=== PATIENT | male | born 1990 | race American Indian/Alaskan Native ===

== ENCOUNTER 2018-09-21 04:24 | Inpatient (IN) | payer SELFPAY ==
--- NOTE | 2018-09-21 07:10 | Emergency Department Report ---
ED General Adult HPI - General Chief complaint: Extremity Injury, Upper Stated complaint: GENERAL PAIN, DETOX Time Seen by Provider: 09/21/18 07:06 Source: patient, EMS Mode of arrival: Ambulatory Limitations: No Limitations - History of Present Illness Initial comments: Patient is a 28-year-old male that presents emergency room with complaints of generalized body pain and body aches and chills and right arm pain secondary to a needle breaking off in his right arm. Patient states that his right arm pain is in the right antecubital region where he was injecting IV drugs. Patient states he also desires detox. Patient states the pain is out of 10. Patient states the pain is worsening. Patient states the pain is in his entire body. She is also complaining of chest pain and shortness of breath. Patient states the chest pain is a 10 out of 10. Patient states the pain is worse with exertion and movement. Patient states the shortness breath is worse with exertion and better with rest. Patient states the chest pain is better with rest. Patient states he's been recently using IV drugs again. -: Sudden Location: chest, back Severity scale (0 -10): 10 Quality: stabbing Consistency: constant Improves with: rest Worsens with: movement Associated Symptoms: denies: confusion, chest pain, cough, diaphoresis, headaches, loss of appetite, malaise, nausea/vomiting, rash, seizure, shortness of breath, syncope, weakness Treatments Prior to Arrival: none - Related Data Home Medications Medication Instructions Recorded Confirmed Last Taken No Known Home Medications [No 09/21/18 09/21/18 Unknown Reported Home Medications] Allergies Allergy/AdvReac Type Severity Reaction Status Date / Time No Known Allergies Allergy Unverified 09/21/18 07:59 ED Review of Systems ROS: Stated complaint: GENERAL PAIN, DETOX Other details as noted in HPI Constitutional: chills. denies: fever Eyes: denies: eye pain, eye discharge, vision change ENT: denies: ear pain, throat pain Respiratory: shortness of breath. denies: cough, wheezing Cardiovascular: chest pain. denies: palpitations Endocrine: no symptoms reported Gastrointestinal: denies: abdominal pain, nausea, diarrhea Genitourinary: denies: urgency, dysuria Musculoskeletal: back pain, myalgia. denies: joint swelling, arthralgia Skin: denies: rash, lesions Neurological: denies: headache, weakness, paresthesias Psychiatric: denies: anxiety, depression Hematological/Lymphatic: denies: easy bleeding, easy bruising ED Past Medical Hx - Past Medical History Previous Medical History?: Yes Additional medical history: IV drug use - Surgical History Past Surgical History?: No - Family History Family history: no significant - Social History Smoking Status: Current Every Day Smoker Substance Use Type: Alcohol, Cocaine, Heroin, Marijuana - Medications Home Medications: Home Medications Medication Instructions Recorded Confirmed Last Taken Type No Known Home Medications [No 09/21/18 09/21/18 Unknown History Reported Home Medications] ED Physical Exam - General Limitations: No Limitations General appearance: alert, in no apparent distress - Head Head exam: Present: atraumatic, normocephalic - Eye Eye exam: Present: normal appearance - ENT ENT exam: Present: mucous membranes dry - Neck Neck exam: Present: normal inspection - Respiratory Respiratory exam: Present: normal lung sounds bilaterally. Absent: respiratory distress - Cardiovascular Cardiovascular Exam: Present: regular rate, normal rhythm. Absent: systolic murmur, diastolic murmur, rubs, gallop - GI/Abdominal GI/Abdominal exam: Present: soft, normal bowel sounds - Rectal Rectal exam: Present: deferred - Extremities Exam Extremities exam: Present: normal inspection, tenderness (right antecubital region) - Back Exam Back exam: Present: normal inspection - Neurological Exam Neurological exam: Present: alert, oriented X3 - Psychiatric Psychiatric exam: Present: normal affect, normal mood - Skin Skin exam: Present: warm, dry, intact, normal color. Absent: rash ED Course Vital Signs 09/21/18 09/21/18 09/21/18 04:30 04:32 04:45 Temperature 98.3 F Pulse Rate 98 H 99 H 92 H Respiratory 19 13 Rate Blood Pressure 126/73 125/69 O2 Sat by Pulse 97 Oximetry 09/21/18 09/21/18 09/21/18 05:00 05:15 05:30 Temperature Pulse Rate 96 H 93 H 94 H Respiratory 18 27 H 25 H Rate Blood Pressure 115/63 113/54 123/55 O2 Sat by Pulse 98 97 97 Oximetry 09/21/18 09/21/18 09/21/18 05:46 06:00 06:15 Temperature Pulse Rate 97 H 93 H 86 Respiratory 13 15 25 H Rate Blood Pressure 121/75 118/70 121/63 O2 Sat by Pulse 98 95 Oximetry 09/21/18 09/21/18 09/21/18 06:30 06:45 07:00 Temperature Pulse Rate 85 81 84 Respiratory 22 26 H 25 H Rate Blood Pressure 114/58 109/64 105/63 O2 Sat by Pulse 96 95 98 Oximetry 09/21/18 09/21/18 09/21/18 07:15 07:30 07:45 Temperature Pulse Rate 83 77 80 Respiratory 19 21 14 Rate Blood Pressure 105/63 105/63 124/66 O2 Sat by Pulse Oximetry 09/21/18 09/21/18 09/21/18 08:00 08:15 08:30 Temperature Pulse Rate 77 83 81 Respiratory 17 24 27 H Rate Blood Pressure 126/72 124/69 120/61 O2 Sat by Pulse Oximetry 09/21/18 09/21/18 09/21/18 08:45 09:00 09:15 Temperature Pulse Rate 77 102 H 54 L Respiratory 22 20 19 Rate Blood Pressure 125/65 123/75 129/52 O2 Sat by Pulse Oximetry 09/21/18 09/21/18 09/21/18 09:30 09:46 10:00 Temperature Pulse Rate 67 89 74 Respiratory 19 18 21 Rate Blood Pressure 123/62 123/62 109/56 O2 Sat by Pulse Oximetry 09/21/18 09/21/18 09/21/18 10:15 10:30 10:45 Temperature Pulse Rate 69 104 H 70 Respiratory 26 H 21 25 H Rate Blood Pressure 102/53 115/61 114/60 O2 Sat by Pulse Oximetry 09/21/18 09/21/18 09/21/18 11:00 11:10 11:15 Temperature Pulse Rate 77 75 Respiratory 15 18 24 Rate Blood Pressure 118/63 116/66 O2 Sat by Pulse Oximetry 09/21/18 09/21/18 09/21/18 11:30 11:45 12:00 Temperature Pulse Rate 74 75 63 Respiratory 24 25 H 24 Rate Blood Pressure 106/57 111/62 111/55 O2 Sat by Pulse Oximetry 09/21/18 09/21/18 09/21/18 12:16 12:30 12:46 Temperature Pulse Rate 51 L 92 H 88 Respiratory 22 24 21 Rate Blood Pressure 116/48 111/65 124/59 O2 Sat by Pulse Oximetry 09/21/18 13:00 Temperature Pulse Rate 59 L Respiratory 22 Rate Blood Pressure 103/56 O2 Sat by Pulse Oximetry - Reevaluation(s) Reevaluation #1: Made at trying to retrieve right antecubital forearm body. Needle visualized on x-ray. See procedure note 09/21/18 09:56 GUSTO results and plan of care with patient. Patient agrees with plan of care and admission. Patient was admitted to the hospitalist service. 09/21/18 10:15 - Consultations Consultation #1: Discussed case with general surgery, Dr Juarez. Dr Juarez states to just leave the needle in place there is no further interventions needed. Dr Juarez states that wound care can be consulted for management. 09/21/18 10:07 Consultation #2: Hospitalist consulted for admission. Hospitalist to admit patient. Hospitalist to assume care patient. Bridge orders placed for hospitalist 09/21/18 10:14 - Procedure Description Procedures done: Right antecubital form body retrieval. Attempt made. Unable to extract metallic foreign body. A 1 cm incision made. Prior to incision site was cleaned and draped in a sterile fashion and 3 mL of lidocaine injected superficially. Sterile dressing applied. Bleeding controlled with direct pressure and dressing. ED Medical Decision Making - Lab Data Result diagrams: 09/21/18 07:56 09/21/18 07:56 - EKG Data -: EKG Interpreted by Me EKG shows normal: sinus rhythm, axis, intervals, QRS complexes, ST-T waves Rate: normal - Radiology Data Radiology results: report reviewed - Medical Decision Making Patient is a 28-year-old mellitus emergency room with multiple complaints. Patient complained of body aches, chills and chest pain shortness of breath. The patient also complained of pain in his antecubital space on his right arm. Patient states he had a needle break off into his right arm. Patient had an x- ray which showed a needle in the right antecubital space. Informed body removal procedure was attempted and was unsuccessful. Patient was admitted to the hospital service for further evaluation treatment. General surgery consulted. General surgery recommendations R patient have wound care done in the hospital and no further evaluation of the needle. Patient given a tetanus in the ER. - Differential Diagnosis cp. sob. foreign body. infection. endo. Critical Care Time: Yes Critical care attestation.: If time is entered above; I have spent that time in minutes in the direct care of this critically ill patient, excluding procedure time. Critical Care Time: 45 minutes ED Disposition Clinical Impression: Chills, Body aches, SOB (shortness of breath) Foreign body of upper arm, superficial Qualifiers: Encounter type: initial encounter Laterality: right Qualified Code(s): S40.851A - Superficial foreign body of right upper arm, initial encounter Chest pain Qualifiers: Chest pain type: unspecified Qualified Code(s): R07.9 - Chest pain, unspecified Disposition: DC-09 OP ADMIT IP TO THIS HOSP Is pt being admited?: Yes Does the pt Need Aspirin: No Condition: Critical Time of Disposition: 10:15
--- NOTE | 2018-09-21 07:57 | XRay Report ---
RIGHT ELBOW, 2 VIEWS History: Pain, possible foreign body. Findings: The bony structures and joint space are unremarkable. There is a 7 mm linear density in the anterior soft tissues on the lateral image which could represent a foreign body. This may represent a small needle or other linear metallic foreign body. Please correlate with the image and the patient. Impression: Possible soft tissue foreign body in the antecubital fossa. Please correlate with the images and the patient.
[2018-09-21 08:20] LABS: Basophils # (Auto) 0.1 K/mm3 (0.0-0.1); Basophils % (Auto) 0.8 % (0.0-1.8); Eosinophils # (Auto) 0.1 K/mm3 (0.0-0.4); Eosinophils % (Auto) 0.7 % (0.0-4.3); Hematocrit 39.9 % (35.5-45.6); Hemoglobin 13.4 gm/dl (11.8-15.2); Lymphocytes # (Auto) 2.3 K/mm3 (1.2-5.4); Lymphocytes % (Auto) 27.8 % (13.4-35.0); Mean Corpuscular HGB Conc 34 % (32-34); Mean Corpuscular Volume 86 fl (84-94); Monocytes % (Auto) 12.1 % (0.0-7.3); Platelet Count 342 K/mm3 (140-440); Red Blood Count 4.62 M/mm3 (3.65-5.03); Red Cell Distribution Width 14.9 % (13.2-15.2)
[2018-09-21 08:29] LABS: Bilirubin,Urine NEG (Negative); Blood,Urine NEG (Negative); Color,Urine Yellow (Yellow); Protein,Urine <15 mg/dL mg/dL (Negative); WBC,Urine < 1.0 /HPF (0.0-6.0)
[2018-09-21 08:32] LABS: Amphetamine Screen,Urine PRESUMPTIVE NEGATIVE; Benzodiazepines Screen,Urine PRESUMPTIVE NEGATIVE; Cocaine Screen,Urine PRESUMPTIVE NEGATIVE; Methadone Screen,Urine PRESUMPTIVE NEGATIVE; Opiate Screen,Urine PRESUMPTIVE NEGATIVE
[2018-09-21 08:43] LABS: Alanine Aminotransferase 150 units/L (7-56); Albumin 3.9 g/dL (3.9-5); BUN/Creatinine Ratio 20; Blood Urea Nitrogen 12 mg/dL (9-20); Calcium 9.2 mg/dL (8.4-10.2); Hemolysis Index 7
[2018-09-21 08:54] LABS: Cannabinoid Screen,Urine PRESUMPTIVE POSITIVE
[2018-09-21] MEDS ORDERED: XYLOCAINE 2% INFILTRATI ONE (09:33)
[2018-09-21] MEDS ORDERED: BOOSTRIX IM ONE ×2 (09:55→10:53)
[2018-09-21 10:18] LABS: Creatine Kinase MB 1.7 ng/mL (0.0-4.0)
[2018-09-21] MEDS ORDERED: DOLOPHINE PO ONE (10:43)
[2018-09-21] MEDS ORDERED: ZOFRAN IV PRN (10:47)
--- NOTE | 2018-09-21 10:47 | History and Physical Report ---
History of Present Illness Date of examination: 09/21/18 Chief complaint: Generalized body aches History of present illness: 28-year-old -[place] male with medical history significant for heroin abuse, nicotine dependence presented to the emergency department his complaints of generalized aching pain for the last 3 days. He rated the pain 9 out of 10 intensity, pronounce it in his joints and bone associated with subjective fever and chills. Patient said his needle was broken and left in his right antecubital area 3 days ago while he was using heroine. He cannot move his right elbow because of the pain due to the needle. The patient denied discharge from the site. Patient said he is withdrawing from heroin. Because of his IV drug abuse, fever and chills I want to rule out infective endocarditis. REVIEW OF SYSTEMS: GENERAL: no weight change, no fatigue HEAD: no head ache EYES: no blurry vision, no acute visual loss EARS: no hearing loss, no discharge, no earache NOSE: no stuffiness, no sneezing, no discharge MOUTH, THROAT AND NECK: no bleeding gums, no sore throat, no swollen neck CARDIAC: no palpitations, no dyspnea on exertion, no orthopnea, no PND, no edema, no chest pain RESPIRATORY: no shortness of breath, no wheeze, no cough, no sputum, no hemoptysis, no asthma GI: no decreased appetite, no nausea, no vomiting, no dysphagia, no diarrhea, no constipation, no abdominal pain URINARY: no change in frequency, no urgency, no polyuria, no hematuria, no incontinence MUSCULOSKELETAL: no muscle weakness, no joint stiffness NEUROLOGIC: no loss of sensation/numbness, no tingling, no tremors, no weakness/paralysis HEMATOLOGIC: no anemia, no easy bruising SKIN: no rashes ENDOCRINE: no heat/cold intolerance, no polyuria, no polydipsia, no thyroid problems, no diabetes PSYCHIATRIC: no anxiety, no depression, no suicidal ideations Past History Past Medical History: No medical history Past Surgical History: No surgical history Social history: smoking (smoking a lot of cigarettes, and marijuana), IV drug use (heroine). denies: alcohol abuse Family history: no significant family history Medications and Allergies Allergies Allergy/AdvReac Type Severity Reaction Status Date / Time No Known Allergies Allergy Unverified 09/21/18 07:59 Home Medications Medication Instructions Recorded Confirmed Last Taken Type No Known Home Medications [No 03/13/19 03/13/19 Unknown History Reported Home Medications] Active Meds: Active Medications Enoxaparin Sodium (Lovenox) 40 mg SUB-Q QDAY@2200 DINH Vancomycin HCl (Vancomycin/Ns 1 Gm/250 Ml) 1 gm in 250 mls @ 166.667 mls/hr IV Q12H DIN[facility]; Protocol Piperacillin Sod/Tazobactam Sod (Zosyn/Ns 4.5gm/100ml) 4.5 gm in 100 mls @ 200 mls/hr IV Q6HR DINH; Protocol Ibuprofen (Motrin) 400 mg PO TID PRN PRN Reason: Pain , Severe (7-10) Methadone HCl (Dolophine) 20 mg PO ONCE ONE Stop: 09/21/18 10:44 Exam - Physical Exam Narrative exam: Not in cardiopulmonary distress. The patient appeared well nourished and normally developed. Vital signs as documented. Head exam is unremarkable. No scleral icterus . Neck is without jugular venous distension, thyromegaly, or carotid bruits. Lungs are clear to auscultation. Cardiac exam reveals regular rate and Rhythm. Abdominal exam reveals normal bowel sounds. Extremities are nonedematous and both femoral and pedal pulses are normal. QUALITY RN: Alert and oriented 3. No focal weakness. - Constitutional Vitals: Temp Pulse Resp BP Pulse Ox 98.3 F 70 25 H 114/60 98 09/21/18 04:32 09/21/18 10:45 09/21/18 10:45 09/21/18 10:45 09/21/18 07:00 Results - Labs CBC & Chem 7: 09/21/18 07:56 09/21/18 07:56 Labs: Laboratory Last Values WBC 8.1 K/mm3 (4.5-11.0) 09/21/18 07:56 RBC 4.62 M/mm3 (3.65-5.03) 09/21/18 07:56 Hgb 13.4 gm/dl (11.8-15.2) 09/21/18 07:56 Hct 39.9 % (35.5-45.6) 09/21/18 07:56 MCV 86 fl (84-94) 09/21/18 07:56 MCH 29 pg (28-32) 09/21/18 07:56 MCHC 34 % (32-34) 09/21/18 07:56 RDW 14.9 % (13.2-15.2) 09/21/18 07:56 Plt Count 342 K/mm3 (140-440) 09/21/18 07:56 Lymph % (Auto) 27.8 % (13.4-35.0) 09/21/18 07:56 [place] % (Auto) 12.1 % (0.0-7.3) H 09/21/18 07:56 Eos % (Auto) 0.7 % (0.0-4.3) 09/21/18 07:56 Baso % (Auto) 0.8 % (0.0-1.8) 09/21/18 07:56 Lymph # 2.3 K/mm3 (1.2-5.4) 09/21/18 07:56 [place] # 1.0 K/mm3 (0.0-0.8) H 09/21/18 07:56 Eos # 0.1 K/mm3 (0.0-0.4) 09/21/18 07:56 Baso # 0.1 K/mm3 (0.0-0.1) 09/21/18 07:56 Seg Neutrophils % 58.6 % (40.0-70.0) 09/21/18 07:56 Seg Neutrophils # 4.8 K/mm3 (1.8-7.7) 09/21/18 07:56 Sodium 138 mmol/L (137-145) 09/21/18 07:56 Potassium 4.5 mmol/L (3.6-5.0) 09/21/18 07:56 Chloride 102.8 mmol/L (98-107) 09/21/18 07:56 Carbon Dioxide 25 mmol/L (22-30) 09/21/18 07:56 Anion Gap 15 mmol/L 09/21/18 07:56 BUN 12 mg/dL (9-20) 09/21/18 07:56 Creatinine 0.6 mg/dL (0.8-1.5) L 09/21/18 07:56 Estimated GFR > 60 ml/min 09/21/18 07:56 BUN/Creatinine Ratio 20 % 09/21/18 07:56 Glucose 98 mg/dL (75-100) 09/21/18 07:56 Lactic Acid 1.00 mmol/L (0.7-2.0) 09/21/18 07:56 Calcium 9.2 mg/dL (8.4-10.2) 09/21/18 07:56 Total Bilirubin 0.30 mg/dL (0.1-1.2) 09/21/18 07:56 AST 77 units/L (5-40) H 09/21/18 07:56 ALT 150 units/L (7-56) H 09/21/18 07:56 Alkaline Phosphatase 75 units/L (35-129) 09/21/18 07:56 Total Creatine Kinase 160 units/L (55-170) 09/21/18 07:56 CK-MB (CK-2) 1.7 ng/mL (0.0-4.0) 09/21/18 07:56 CK-MB (CK-2) Rel Index 1.0 (0-4) 09/21/18 07:56 Troponin T < 0.010 ng/mL (0.00-0.029) 09/21/18 07:56 Total Protein 6.7 g/dL (6.3-8.2) 09/21/18 07:56 Albumin 3.9 g/dL (3.9-5) 09/21/18 07:56 Albumin/Globulin Ratio 1.4 % 09/21/18 07:56 Urine Color Yellow (Yellow) 09/21/18 08:00 Urine Turbidity Clear (Clear) 09/21/18 08:00 Urine pH 7.0 (5.0-7.0) 09/21/18 08:00 Ur Specific [place] 1.013 (1.003-1.030) 09/21/18 08:00 Urine Protein <15 mg/dl mg/dL (Negative) 09/21/18 08:00 Urine Glucose (UA) Neg mg/dL (Negative) 09/21/18 08:00 Urine Ketones Neg mg/dL (Negative) 09/21/18 08:00 Urine Blood Neg (Negative) 09/21/18 08:00 Urine Nitrite Neg (Negative) 09/21/18 08:00 Urine Bilirubin Neg (Negative) 09/21/18 08:00 Urine Urobilinogen 4.0 mg/dL (<2.0) 09/21/18 08:00 Ur Leukocyte Esterase Neg (Negative) 09/21/18 08:00 Urine WBC (Auto) < 1.0 /HPF (0.0-6.0) 09/21/18 08:00 Urine RBC (Auto) 2.0 /HPF (0.0-6.0) 09/21/18 08:00 Urine Opiates Screen Presumptive negative 09/21/18 08:00 Urine Methadone Screen Presumptive negative 09/21/18 08:00 Ur Barbiturates Screen Presumptive negative 09/21/18 08:00 Ur Phencyclidine Scrn Presumptive negative 09/21/18 08:00 Ur Amphetamines Screen Presumptive negative 09/21/18 08:00 U Benzodiazepines Scrn Presumptive negative 09/21/18 08:00 Urine Cocaine Screen Presumptive negative 09/21/18 08:00 U Marijuana (THC) Screen Presumptive positive 09/21/18 08:00 Drugs of Abuse Note Disclamer 09/21/18 08:00 Assessment and Plan Assessment and plan: Rule out infective endocarditis - Patient is on IV vancomycin and Zosyn - Blood culture ordered - Echo, we'll monitor for fever - ID consult Broken needle in the right antecubital area - IR was consulted and will do CT and will remove the needle Heroin abuse, withdrawal - On methadone Nicotine dependence -Nicotine patch DVT prophylaxis - On Lovenox Disposition - Admit to telemetry floor Advance Directives: Yes VTE prophylaxis?: Chemical Plan of care discussed with patient/family: Yes
[2018-09-21] MEDS: ZOSYN/NS 4.5GM/100ML 4.5 GM/100 ML VIAL IV SCH ×2 (12:00→20:45)
[2018-09-21] MEDS ORDERED: VANCOMYCIN 1,500 MG in NACL 0.9% 500 ML 500 ML IV ONE (12:00)
--- NOTE | 2018-09-21 12:09 | Consultation ---
History of Present Illness - Reason for Consult Consult date: 09/21/18 foreign body in antecubital fossa - History of Present Illness Patient with a history of IV drug abuse who fractured and needle in his antecubital fossa all injecting drugs. The patient presents with fevers and chills. There is no drainage or exudates at the site of needle insertion. Attempt removed and foreign body in the emergency department were unsuccessful. Past History Past Medical History: other (IV drug abuse) Social history: no significant social history Family history: no significant family history Medications and Allergies Allergies Allergy/AdvReac Type Severity Reaction Status Date / Time No Known Allergies Allergy Unverified 09/21/18 07:59 Home Medications Medication Instructions Recorded Confirmed Last Taken Type No Known Home Medications [No 09/21/18 09/21/18 Unknown History Reported Home Medications] Active Meds: Active Medications Enoxaparin Sodium (Lovenox) 40 mg SUB-Q QDAY@2200 DIN[facility] Vancomycin HCl (Vancomycin/Ns 1 Gm/250 Ml) 1 gm in 250 mls @ 166.667 mls/hr IV Q12H [facility]IN[facility]; Protocol Piperacillin Sod/Tazobactam Sod (Zosyn/Ns 4.5gm/100ml) 4.5 gm in 100 mls @ 200 mls/hr IV Q6HR [facility]IN[facility]; Protocol Vancomycin HCl 1,500 mg/ (Sodium Chloride) 530 mls @ 333.333 mls/hr IV ONCE ONE Stop: 09/21/18 13:35 Ibuprofen (Motrin) 400 mg PO TID PRN PRN Reason: Pain , Severe (7-10) Ondansetron HCl (Zofran) 4 mg IV Q8H PRN PRN Reason: N/V unrelieved by Reglan Review of Systems All systems: negative Exam - Constitutional Vitals: Temp Pulse Resp BP Pulse Ox 98.3 F 70 18 114/60 98 09/21/18 04:32 09/21/18 10:45 09/21/18 11:10 09/21/18 10:45 09/21/18 07:00 General appearance: Present: no acute distress - EENT Eyes: Present: EOM intact ENT: hearing intact - Neck Neck: Present: supple - Extremities Extremities: no ischemia - Abdominal General gastrointestinal: Present: deferred Male genitourinary: Present: deferred - Rectal Rectal Exam: deferred - Psychiatric Psychiatric: cooperative - Neurologic Neurologic: no focal deficits Results - Labs CBC & Chem 7: 09/21/18 07:56 09/21/18 07:56 Labs: Abnormal lab results 09/21/18 09/21/18 Range/Units 07:56 07:56 [place] % (Auto) 12.1 H (0.0-7.3) % [place] # 1.0 H (0.0-0.8) K/mm3 Creatinine 0.6 L (0.8-1.5) mg/dL AST 77 H (5-40) units/L ALT 150 H (7-56) units/L - Imaging and Cardiology Chest x-ray: image reviewed (right elbow xray) Assessment and Plan We'll order a CT scan of the patient's right arm to determine the depth of the foreign body. Following that, the patient will undergo removal of foreign body under likely ultrasound guidance.
--- NOTE | 2018-09-21 13:43 | Cat Scan Report ---
CT UPPER EXTREMITY RIGHT WITH CONTRAST History: Pain, foreign body, needle in the antecubital fossa Technique: Helical CT following IV contrast. Sagittal and coronal reformatted images. Findings: Right elbow films performed the same day were reviewed. CT confirms a linear metallic foreign body measuring approximately 7 mm in the subcutaneous tissues of the right antecubital fossa. This appears to represent a needle fragment. The tip of the foreign body is located approximately 2 mm deep to the skin surface. Please correlate with the images. There is no evidence for soft tissue gas or associated abscess in the antecubital fossa. The remaining soft tissues and bony structures are unremarkable. No joint pathology is identified. IMPRESSION: Foreign body in the right antecubital fossa soft tissues as outlined above. No associated abscess.
[2018-09-21 18:31] LABS: Hepatitis C Virus Antibody Reactive (NonReactive)
[2018-09-21] MEDS: IBUPROFEN PO PRN (20:45)
[2018-09-21] MEDS: HABITROL TD SCH (20:45)
[2018-09-21] MEDS: DOLOPHINE PO SCH (22:11)
[2018-09-21] MEDS: LOVENOX SUB-Q SCH (22:11)
[2018-09-22] MEDS: ZOSYN/NS 4.5GM/100ML 4.5 GM/100 ML VIAL IV SCH ×5 (00:04→23:09)
[2018-09-22] MEDS ORDERED: VANCOMYCIN/NS 1 GM/250 ML 1 GM/250 ML BAG IV SCH (01:00)
[2018-09-22 07:00] LABS: Basophils % (Auto) 0.5 % (0.0-1.8); Eosinophils # (Auto) 0.1 K/mm3 (0.0-0.4); Eosinophils % (Auto) 1.4 % (0.0-4.3); Hematocrit 43.3 % (35.5-45.6); Hemoglobin 14.4 gm/dl (11.8-15.2); Lymphocytes # (Auto) 2.4 K/mm3 (1.2-5.4); Lymphocytes % (Auto) 30.2 % (13.4-35.0); Mean Corpuscular HGB Conc 33 % (32-34); Mean Corpuscular Volume 87 fl (84-94); Monocytes # (Auto) 0.9 K/mm3 (0.0-0.8); Monocytes % (Auto) 11.1 % (0.0-7.3); Platelet Count 364 K/mm3 (140-440); Red Blood Count 4.95 M/mm3 (3.65-5.03); Red Cell Distribution Width 15.1 % (13.2-15.2)
[2018-09-22 07:18] LABS: BUN/Creatinine Ratio 16; Blood Urea Nitrogen 11 mg/dL (9-20); Calcium 9.2 mg/dL (8.4-10.2); Hemolysis Index 15
[2018-09-22] MEDS: HABITROL TD SCH (09:22)
[2018-09-22] MEDS: DOLOPHINE PO SCH ×2 (09:22→21:13)
[2018-09-22] MEDS ORDERED: HEPARIN/NS 5000 UNIT/500ML(CATH LAB) 0 ML IR ONE (13:28)
[2018-09-22] MEDS ORDERED: NACL 0.9% 500 ML 500 ML ONE (13:28)
[2018-09-22] MEDS ORDERED: XYLOCAINE 2% INFILTRATI ONE (13:29)
[2018-09-22] MEDS ORDERED: ANCEF/STERILE WATER 2 GM/20 ML 0 GM/0 ML SYRINGE IV ONE (13:29)
[2018-09-22] MEDS ORDERED: NACL 0.9% 0 ML IR ONE (13:55)
[2018-09-22] MEDS: VERSED ONE ×2 (14:13→14:24)
[2018-09-22] MEDS: SUBLIMAZE ONE ×2 (14:13→14:24)
[2018-09-22] MEDS ORDERED: XYLOCAINE 1%/ EPI 1:100,000 INFILTRATI ONE (14:22)
--- NOTE | 2018-09-22 14:42 | Post Operative Note ---
Date of procedure: 09/22/18 Pre-op diagnosis: Foreign body in right arm Post-op diagnosis: same Procedure: 1. Ultrasound guided evaluation of the right antecubital fossa with attempt at removal 2. Fluoroscopic guided removal of the right arm antecubital fossa retained needle Anesthesia: local (w/ conscious sedation) Surgeon: FLORECITA CELAYA Estimated blood loss: minimal Condition: stable Disposition: floor
--- NOTE | 2018-09-22 14:44 | Event Note ---
Date: 09/22/18 Successful removal of the right arm foreign body. Sent for culture. Change iodoform gauze daily until healed. Wound care for further management.
--- NOTE | 2018-09-22 14:57 | Event Note ---
Date: 09/22/18 Patient off the floor. ID consulted for IVDU, concern for possible endocarditis. Chart reviewed. Patient with retained broken needle from active IVDU. Continue vancomycin. Follow up blood cultures, they are negative thus far. Full consult to follow in AM.
--- NOTE | 2018-09-22 15:25 | Progress Note ---
Assessment and Plan Assessment and plan: Rule out infective endocarditis - Patient is on IV vancomycin and Zosyn - follow blood culture - follow echo - ID consulted and recommend vancomycin until work up is finished Broken needle in the right antecubital area - IR was consulted and remove the foreign body Heroin abuse, withdrawal - On methadone Nicotine dependence -Nicotine patch DVT prophylaxis - On Lovenox Disposition - Admit to telemetry floor History Interval history: Patient was seen and evaluated this morning, patient denied chest pain, heroin withdrawal was getting better after methadone. Hospitalist Physical - Physical exam Narrative exam: Not in cardiopulmonary distress. The patient appeared well nourished and normally developed. Vital signs as documented. Head exam is unremarkable. No scleral icterus . Neck is without jugular venous distension, thyromegaly, or carotid bruits. Lungs are clear to auscultation. Cardiac exam reveals regular rate and Rhythm. Abdominal exam reveals normal bowel sounds. Extremities are nonedematous and both femoral and pedal pulses are normal. CONSUMER EDUCATION SPECIALIST: Alert and oriented 3. No focal weakness. - Constitutional Vitals: Temp Pulse Resp BP Pulse Ox 98.9 F 60 20 103/51 98 09/22/18 08:07 09/22/18 08:07 09/22/18 08:07 09/22/18 08:07 09/22/18 08:07 General appearance: Present: no acute distress Results - Labs CBC & Chem 7: 09/22/18 05:55 09/22/18 05:55 Labs: Laboratory Last Values WBC 8.0 K/mm3 (4.5-11.0) 09/22/18 05:55 RBC 4.95 M/mm3 (3.65-5.03) 09/22/18 05:55 Hgb 14.4 gm/dl (11.8-15.2) 09/22/18 05:55 Hct 43.3 % (35.5-45.6) 09/22/18 05:55 MCV 87 fl (84-94) 09/22/18 05:55 MCH 29 pg (28-32) 09/22/18 05:55 MCHC 33 % (32-34) 09/22/18 05:55 RDW 15.1 % (13.2-15.2) 09/22/18 05:55 Plt Count 364 K/mm3 (140-440) 09/22/18 05:55 Lymph % (Auto) 30.2 % (13.4-35.0) 09/22/18 05:55 [place] % (Auto) 11.1 % (0.0-7.3) H 09/22/18 05:55 Eos % (Auto) 1.4 % (0.0-4.3) 09/22/18 05:55 Baso % (Auto) 0.5 % (0.0-1.8) 09/22/18 05:55 Lymph # 2.4 K/mm3 (1.2-5.4) 09/22/18 05:55 [place] # 0.9 K/mm3 (0.0-0.8) H 09/22/18 05:55 Eos # 0.1 K/mm3 (0.0-0.4) 09/22/18 05:55 Baso # 0.0 K/mm3 (0.0-0.1) 09/22/18 05:55 Seg Neutrophils % 56.8 % (40.0-70.0) 09/22/18 05:55 Seg Neutrophils # 4.6 K/mm3 (1.8-7.7) 09/22/18 05:55 Sodium 141 mmol/L (137-145) 09/22/18 05:55 Potassium 4.3 mmol/L (3.6-5.0) 09/22/18 05:55 Chloride 103.8 mmol/L (98-107) 09/22/18 05:55 Carbon Dioxide 23 mmol/L (22-30) 09/22/18 05:55 Anion Gap 19 mmol/L 09/22/18 05:55 BUN 11 mg/dL (9-20) 09/22/18 05:55 Creatinine 0.7 mg/dL (0.8-1.5) L 09/22/18 05:55 Estimated GFR > 60 ml/min 09/22/18 05:55 BUN/Creatinine Ratio 16 % 09/22/18 05:55 Glucose 84 mg/dL (75-100) 09/22/18 05:55 Lactic Acid 1.00 mmol/L (0.7-2.0) 09/21/18 07:56 Calcium 9.2 mg/dL (8.4-10.2) 09/22/18 05:55 Total Bilirubin 0.30 mg/dL (0.1-1.2) 09/21/18 07:56 AST 77 units/L (5-40) H 09/21/18 07:56 ALT 150 units/L (7-56) H 09/21/18 07:56 Alkaline Phosphatase 75 units/L (35-129) 09/21/18 07:56 Total Creatine Kinase 160 units/L (55-170) 09/21/18 07:56 CK-MB (CK-2) 1.7 ng/mL (0.0-4.0) 09/21/18 07:56 CK-MB (CK-2) Rel Index 1.0 (0-4) 09/21/18 07:56 Troponin T < 0.010 ng/mL (0.00-0.029) 09/21/18 07:56 Total Protein 6.7 g/dL (6.3-8.2) 09/21/18 07:56 Albumin 3.9 g/dL (3.9-5) 09/21/18 07:56 Albumin/Globulin Ratio 1.4 % 09/21/18 07:56 Urine Color Yellow (Yellow) 09/21/18 08:00 Urine Turbidity Clear (Clear) 09/21/18 08:00 Urine pH 7.0 (5.0-7.0) 09/21/18 08:00 Ur Specific [place] 1.013 (1.003-1.030) 09/21/18 08:00 Urine Protein <15 mg/dl mg/dL (Negative) 09/21/18 08:00 Urine Glucose (UA) Neg mg/dL (Negative) 09/21/18 08:00 Urine Ketones Neg mg/dL (Negative) 09/21/18 08:00 Urine Blood Neg (Negative) 09/21/18 08:00 Urine Nitrite Neg (Negative) 09/21/18 08:00 Urine Bilirubin Neg (Negative) 09/21/18 08:00 Urine Urobilinogen 4.0 mg/dL (<2.0) 09/21/18 08:00 Ur Leukocyte Esterase Neg (Negative) 09/21/18 08:00 Urine WBC (Auto) < 1.0 /HPF (0.0-6.0) 09/21/18 08:00 Urine RBC (Auto) 2.0 /HPF (0.0-6.0) 09/21/18 08:00 Urine Opiates Screen Presumptive negative 09/21/18 08:00 Urine Methadone Screen Presumptive negative 09/21/18 08:00 Ur Barbiturates Screen Presumptive negative 09/21/18 08:00 Ur Phencyclidine Scrn Presumptive negative 09/21/18 08:00 Ur Amphetamines Screen Presumptive negative 09/21/18 08:00 U Benzodiazepines Scrn Presumptive negative 09/21/18 08:00 Urine Cocaine Screen Presumptive negative 09/21/18 08:00 U Marijuana (THC) Screen Presumptive positive 09/21/18 08:00 Drugs of Abuse Note Disclamer 09/21/18 08:00 Hepatitis A IgM Ab Non-reactive (NonReactive) 09/21/18 17:35 Hep B Core IgM Ab Non-reactive (NonReactive) 09/21/18 17:35 Hepatitis C Antibody Reactive (NonReactive) A 09/21/18 17:35
[2018-09-22] MEDS: IBUPROFEN PO PRN ×2 (17:18→21:14)
[2018-09-22] MEDS: VANCOMYCIN/NS 1 GM/250 ML 1 GM/250 ML BAG IV SCH ×2 (17:19→22:49)
[2018-09-22] MEDS: LOVENOX SUB-Q SCH (21:13)
[2018-09-23] MEDS: ZOSYN/NS 4.5GM/100ML 4.5 GM/100 ML VIAL IV SCH ×3 (06:15→18:01)
[2018-09-23] MEDS: VANCOMYCIN/NS 1 GM/250 ML 1 GM/250 ML BAG IV SCH ×2 (06:16→14:24)
[2018-09-23] MEDS: DOLOPHINE PO SCH (10:46)
[2018-09-23] MEDS: HABITROL TD SCH (10:47)
--- NOTE | 2018-09-23 12:57 | Consultation ---
History of Present Illness - Reason for Consult Consult date: 09/23/18 Fever, chills, concern for endocarditis Requesting physician: NICHOLAS SELLERS - History of Present Illness The patient is a 28-year-old male with active IV drug use, tobacco dependence presented to the emergency room on 09/27/2018 with complaints of a broken needle getting stuck in his right elbow. He also reportedly had been having some chills and sweats for the past week or so prior to admission. The emergency room physician tried and was unable to remove the foreign body and hence patient was admitted to the hospital. He was started empirically on IV Zosyn and vancomycin. He was seen by interventional radiology and on 09/22/2018 he underwent successful removal of the foreign body under ultrasound guidance. Infectious diseases was consulted to evaluate for possibility of endocarditis. Patient currently denies any fever. Has remained afebrile throughout hospitalization. He reports having sweats going on for the last 1-2 weeks or so. Continues to engage in active IV drug use. He otherwise denies nausea, vomiting. Denies any loose watery stools. Denies urinary burning. His hepatitis C test has resulted positive here, unaware of the diagnosis. He states he was checked for HIV about 2 months ago and was negative. He is sexually active with females, does not use condoms consistently. Review of Systems: General: no fevers or rigors. Sweats and chills + HEENT: no new visual disturbance Respiratory: No cough, sputum, hemoptysis or shortness of breath Cardiovascular: No chest pain, syncope Gastrointestinal: No nausea, vomiting or diarrhea Genitourinary: No dysuria or hematuria Musculoskeletal: No new or worsening neck pain or back pain Neurologic: No headaches, seizures Hematologic: No easy bruising or bleeding Endocrine: No heat/cold intolerance, no acute weight loss Skin: negative for rash, jaundice Psychiatric: No suicidal or homicidal ideation Past History Past Medical History: No medical history Past Surgical History: No surgical history Social history: smoking (smoking a lot of cigarettes, and marijuana), IV drug use (heroine). denies: alcohol abuse Family history: no significant family history Medications and Allergies Allergies Allergy/AdvReac Type Severity Reaction Status Date / Time No Known Allergies Allergy Unverified 09/21/18 07:59 Home Medications Medication Instructions Recorded Confirmed Last Taken Type No Known Home Medications [No 09/21/18 09/21/18 Unknown History Reported Home Medications] Active Meds: Active Medications Enoxaparin Sodium (Lovenox) 40 mg SUB-Q QDAY@2200 [facility] Last Admin: 09/22/18 21:13 Dose: 40 mg Documented by: Piperacillin Sod/Tazobactam Sod (Zosyn/Ns 4.5gm/100ml) 4.5 gm in 100 mls @ 200 mls/hr IV Q6HR [facility]; Protocol Last Admin: 09/23/18 12:36 Dose: 200 mls/hr Documented by: Vancomycin HCl (Vancomycin/Ns 1 Gm/250 Ml) 1 gm in 250 mls @ 166.667 mls/hr IV Q8HR [facility]; Protocol Last Admin: 09/23/18 06:16 Dose: 166.667 mls/hr Documented by: Ibuprofen (Motrin) 400 mg PO TID PRN PRN Reason: Pain , Severe (7-10) Last Admin: 09/22/18 21:14 Dose: 400 mg Documented by: Methadone HCl (Dolophine) 10 mg PO BID [facility] Last Admin: 09/23/18 10:46 Dose: 10 mg Documented by: Nicotine (Habitrol) 21 mg TD QDAY [facility] Last Admin: 09/23/18 10:47 Dose: 21 mg Documented by: Ondansetron HCl (Zofran) 4 mg IV Q8H PRN PRN Reason: N/V unrelieved by Reglan Physical Examination - Physical Exam Narrative exam: Physical Exam: Constitutional: Alert, cooperative. No acute distress Head, Ears, Nose: Normocephalic, atraumatic. External ears, nose normal Eyes: Conjunctivae/corneas clear. No icterus. No ptosis. Neck: Supple, no meningeal signs Oral: dentition quite poor, no thrush Cardiovascular: S1, S2 normal. Respiratory: Good air entry, clear to auscultation bilaterally GI: Soft, non-tender; bowel sounds normal. No peritoneal signs Musculoskeletal: No pedal edema, no cyanosis. Right elbow wound with packing and dressing Skin: No rash or abscess. Multiple tattoos Hem/Lymphatic: No palpable cervical or supraclavicular nodes. No lymphangitis Psych: Mood ok. Affect normal Neurological: Awake, alert, oriented. No gross abnormality - Constitutional Vitals: Vital Signs Temp Pulse Resp BP Pulse Ox 98.1 F 58 L 20 96/51 99 09/23/18 08:31 09/23/18 08:31 09/23/18 08:31 09/23/18 08:31 09/23/18 08:31 Temperature -Last 24 Hours Temperature 98.1 F Temperature 98.1 F Temperature 98.3 F Temperature 98.3 F Results - Labs CBC & Chem 7: 09/22/18 05:55 09/22/18 05:55 Assessment and Plan Cultures: 09/21/2018 blood culture: No growth at 24 hours A/P: 28-year-old male with active IV drug use, tobacco dependence with: 1) Active IVDU: recommend drug rehab. 2) Retained broken needle/foreign body in right antecubital fossa s/p removal by IR on 09/22/2018. CT without abscess or cellulitis. Continue wound care. 3) Hepatitis C: newly diagnosed. Discussed with patient. 4) Chronic chills: no fever. Could be related to withdrawal symptoms. Follow up TTE and blood cultures. 5) Poor dentition: recommend outpatient dental eval. Recs: Follow-up blood cultures and follow-up TTE, if blood cultures remain negative at 48 hours and TTE without any significant valvular issues, okay to discharge patient from ID standpoint tomorrow off abx Hep C diagnosis was discussed with patient, recommended outpatient eval and treatment but needs to abstain from IVDU check HIV screen (ordered for tomorrow AM) continue wound care to right antecubital fossa recommend drug rehab recommend outpatient dental eval MD Mary Kate [facility] C: [phone] O: [phone] F: [phone]
--- NOTE | 2018-09-23 14:19 | Progress Note ---
Assessment and Plan Assessment and plan: Rule out infective endocarditis - Patient is on IV vancomycin and Zosyn - blood culture negative for 24 hours, ID wants negative for 48 hours for discharge - follow echocardiogram, was not read - ID consulted and recommend vancomycin until work up is finished - Hep C positive, ID ordered HIV test in the morning Broken needle in the right antecubital area - IR was consulted and remove the foreign body Heroin abuse, withdrawal - On methadone Nicotine dependence -Nicotine patch DVT prophylaxis - On Lovenox Disposition - Possible DC tomorrow. History Interval history: Patient was seen and evaluated this morning, patient denied chest pain, heroin withdrawal was getting better after methadone. patient denied fever, chills. Hospitalist Physical - Physical exam Narrative exam: Not in cardiopulmonary distress. The patient appeared well nourished and normally developed. Vital signs as documented. Head exam is unremarkable. No scleral icterus . Neck is without jugular venous distension, thyromegaly, or carotid bruits. Lungs are clear to auscultation. Cardiac exam reveals regular rate and Rhythm. Abdominal exam reveals normal bowel sounds. Extremities are nonedematous and both femoral and pedal pulses are normal. PRESERVATIONIST: Alert and oriented 3. No focal weakness. - Constitutional Vitals: Temp Pulse Resp BP Pulse Ox 98.1 F 58 L 20 96/51 99 09/23/18 08:31 09/23/18 08:31 09/23/18 08:31 09/23/18 08:31 09/23/18 08:31 General appearance: Present: no acute distress Results - Labs CBC & Chem 7: 09/22/18 05:55 09/22/18 05:55 Labs: Laboratory Last Values WBC 8.0 K/mm3 (4.5-11.0) 09/22/18 05:55 RBC 4.95 M/mm3 (3.65-5.03) 09/22/18 05:55 Hgb 14.4 gm/dl (11.8-15.2) 09/22/18 05:55 Hct 43.3 % (35.5-45.6) 09/22/18 05:55 MCV 87 fl (84-94) 09/22/18 05:55 MCH 29 pg (28-32) 09/22/18 05:55 MCHC 33 % (32-34) 09/22/18 05:55 RDW 15.1 % (13.2-15.2) 09/22/18 05:55 Plt Count 364 K/mm3 (140-440) 09/22/18 05:55 Lymph % (Auto) 30.2 % (13.4-35.0) 09/22/18 05:55 [place] % (Auto) 11.1 % (0.0-7.3) H 09/22/18 05:55 Eos % (Auto) 1.4 % (0.0-4.3) 09/22/18 05:55 Baso % (Auto) 0.5 % (0.0-1.8) 09/22/18 05:55 Lymph # 2.4 K/mm3 (1.2-5.4) 09/22/18 05:55 [place] # 0.9 K/mm3 (0.0-0.8) H 09/22/18 05:55 Eos # 0.1 K/mm3 (0.0-0.4) 09/22/18 05:55 Baso # 0.0 K/mm3 (0.0-0.1) 09/22/18 05:55 Seg Neutrophils % 56.8 % (40.0-70.0) 09/22/18 05:55 Seg Neutrophils # 4.6 K/mm3 (1.8-7.7) 09/22/18 05:55 Sodium 141 mmol/L (137-145) 09/22/18 05:55 Potassium 4.3 mmol/L (3.6-5.0) 09/22/18 05:55 Chloride 103.8 mmol/L (98-107) 09/22/18 05:55 Carbon Dioxide 23 mmol/L (22-30) 09/22/18 05:55 Anion Gap 19 mmol/L 09/22/18 05:55 BUN 11 mg/dL (9-20) 09/22/18 05:55 Creatinine 0.7 mg/dL (0.8-1.5) L 09/22/18 05:55 Estimated GFR > 60 ml/min 09/22/18 05:55 BUN/Creatinine Ratio 16 % 09/22/18 05:55 Glucose 84 mg/dL (75-100) 09/22/18 05:55 Lactic Acid 1.00 mmol/L (0.7-2.0) 09/21/18 07:56 Calcium 9.2 mg/dL (8.4-10.2) 09/22/18 05:55 Total Bilirubin 0.30 mg/dL (0.1-1.2) 09/21/18 07:56 AST 77 units/L (5-40) H 09/21/18 07:56 ALT 150 units/L (7-56) H 09/21/18 07:56 Alkaline Phosphatase 75 units/L (35-129) 09/21/18 07:56 Total Creatine Kinase 160 units/L (55-170) 09/21/18 07:56 CK-MB (CK-2) 1.7 ng/mL (0.0-4.0) 09/21/18 07:56 CK-MB (CK-2) Rel Index 1.0 (0-4) 09/21/18 07:56 Troponin T < 0.010 ng/mL (0.00-0.029) 09/21/18 07:56 Total Protein 6.7 g/dL (6.3-8.2) 09/21/18 07:56 Albumin 3.9 g/dL (3.9-5) 09/21/18 07:56 Albumin/Globulin Ratio 1.4 % 09/21/18 07:56 Urine Color Yellow (Yellow) 09/21/18 08:00 Urine Turbidity Clear (Clear) 09/21/18 08:00 Urine pH 7.0 (5.0-7.0) 09/21/18 08:00 Ur Specific [place] 1.013 (1.003-1.030) 09/21/18 08:00 Urine Protein <15 mg/dl mg/dL (Negative) 09/21/18 08:00 Urine Glucose (UA) Neg mg/dL (Negative) 09/21/18 08:00 Urine Ketones Neg mg/dL (Negative) 09/21/18 08:00 Urine Blood Neg (Negative) 09/21/18 08:00 Urine Nitrite Neg (Negative) 09/21/18 08:00 Urine Bilirubin Neg (Negative) 09/21/18 08:00 Urine Urobilinogen 4.0 mg/dL (<2.0) 09/21/18 08:00 Ur Leukocyte Esterase Neg (Negative) 09/21/18 08:00 Urine WBC (Auto) < 1.0 /HPF (0.0-6.0) 09/21/18 08:00 Urine RBC (Auto) 2.0 /HPF (0.0-6.0) 09/21/18 08:00 Urine Opiates Screen Presumptive negative 09/21/18 08:00 Urine Methadone Screen Presumptive negative 09/21/18 08:00 Ur Barbiturates Screen Presumptive negative 09/21/18 08:00 Ur Phencyclidine Scrn Presumptive negative 09/21/18 08:00 Ur Amphetamines Screen Presumptive negative 09/21/18 08:00 U Benzodiazepines Scrn Presumptive negative 09/21/18 08:00 Urine Cocaine Screen Presumptive negative 09/21/18 08:00 U Marijuana (THC) Screen Presumptive positive 09/21/18 08:00 Drugs of Abuse Note Disclamer 09/21/18 08:00 Hepatitis A IgM Ab Non-reactive (NonReactive) 09/21/18 17:35 Hep B Core IgM Ab Non-reactive (NonReactive) 09/21/18 17:35 Hepatitis C Antibody Reactive (NonReactive) A 09/21/18 17:35
[2018-09-23] MEDS: IBUPROFEN PO PRN (14:23)
--- NOTE | 2018-09-23 14:27 | Operative Report ---
Operative Report Operative Report: EXAM: 1. Ultrasound-guided evaluation of right antecubital fossa with image guided attempt at removal of foreign body in the subcutaneous tissues of the right arm 2. Fluoroscopic guided evaluation of the right antecubital fossa with image guided removal of foreign body in the subcutaneous tissues of the right arm. 3. Complicated removal of foreign body in the subcutaneous tissues of the right arm. DATE: 09/22/18 [employer]ERCIAL FLOOR COVERING INSTALLER: FLORECITA CELAYA MD INDICATION: IV drug user who broke needle off in the antecubital fossa the right arm with attempts by emergency room physician to remove the needle but was unsuccessful with request for image guided attempt at needle removal. MEDICATIONS: Please see nursing report for full details. PROCEDURE: The risks, benefits, and alternatives were discussed with the patient; written informed consent was obtained. The right arm was prepped and draped in a sterile fashion. Lidocaine with epinephrine was used to anesthetize the area. Ultrasound was used to evaluate the right arm and the needle was possibly visualized. It was hard to identify the needle under ultrasound as it was not very echogenic. Fluoroscopy was used which confirmed the needle position. Evaluating the old incision which was 2 cm in size, hemostat was placed in the incision and the incision was explored. Despite use of ultrasound, the needle could not be removed. Under fluoroscopic guidance, hemostat was used to probe the wound. I made a second incision near the first incision in an attempt to grasp the needle under fluoroscopic guidance but this was not successful. I then evaluated the original wound and then had to push the hemostat through the fascial layer. I was then able to grasp the needle under the fascial layer with the hemostat and the needle was successfully removed. After this was completed, the area was flushed with saline. The area was then packed with iodoform gauze. Dressing applied. Patient tolerated the procedure well. No immediate post procedural complication. EBL: Minimal FINDINGS: Successful removal of the needle within the subcutaneous tissues of the right arm under imaging guidance. Needle was sent for culture. IMPRESSION: 1. Successful removal of a needle embedded in the subcutaneous tissues of the right arm as described above.
[2018-09-23 17:54] VITALS: BP 102/53
--- NOTE | 2018-09-24 06:44 | Discharge Summary ---
Providers - Providers Date of Admission: 09/21/18 10:18 Date of discharge: 09/24/18 Attending physician: NICHOLAS SELLERS MD 09/21/18 10:14 Consult to Wound/ET Nurse [CONS] Routine Reason For Exam: wound eval 09/21/18 10:44 Consult to Physician [CONS] Routine Comment: Consulting Provider: FLORECITA CHEN Physician Instructions: Reason For Exam: needle in the right antecubital area 09/21/18 17:24 Consult to Physician [CONS] Routine Comment: Consulting Provider: DEON MENEZES Physician Instructions: Reason For Exam: IV drug abuse, fever chills ?infective endocarditi 09/22/18 14:42 Consult to Wound/ET Nurse [CONS] Routine Reason For Exam: change iodoform gauze right arm daily Hospitalization Reason for admission: foreign body (broken needle) arm, IVDU, r/o endocarditis, heroin Condition: Stable Pertinent studies: Echo was done; result was pending after 3 days Procedures: Removal of foreign body in the right arm Hospital course: 28-year-old -[place] male with medical history significant for heroin abuse, nicotine dependence presented to the emergency department his complaints of generalized aching pain for the last 3 days. He rated the pain 9 out of 10 intensity, pronounce it in his joints and bone associated with subjective fever and chills. Patient said his needle was broken and left in his right antecubital area 3 days ago while he was using heroine. He cannot move his right elbow because of the pain due to the needle. The patient denied discharge from the site. Patient said he is withdrawing from heroin. Because of his IV drug abuse, fever and chills I want to rule out infective endocarditis. Patient was admitted to the floor and he was started with IV antibiotics, ID and interventional radiology consulted. IR took out the broken needle from his arm. Patient is on methadone for heroin withdrawal and withdrawal symptoms subsided. Blood culture was negative for the last 24 hours and ID recommended discharge if negative after 48 hours. Patient's transaminases were elevated and hepatitis panel was done was positive for hep C antibody, ID discussed with him for follow-up on an outpatient for the treatment of hepatitis c. Patient was supposed to have screening for HIV and this morning but patient left AMA last ni ght. Disposition: DC-07 LEFT AGAINST MED ADVICE Time spent for discharge: 32 minutes - Discharge Diagnoses (1) Body aches Status: Acute (2) Chest pain Status: Acute Qualifiers: Chest pain type: unspecified Qualified Code(s): R07.9 - Chest pain, unspecified (3) Chills Status: Acute (4) Foreign body of upper arm, superficial Status: Acute Qualifiers: Encounter type: initial encounter Laterality: right Qualified Code(s): S40.851A - Superficial foreign body of right upper arm, initial encounter (5) SOB (shortness of breath) Status: Acute Core Measure Documentation - Palliative Care Palliative Care/ Comfort Measures: Not Applicable - Core Measures Any of the following diagnoses?: none Exam - Physical Exam Narrative exam: Didn't examined the patient by the time he left. - Constitutional Vitals: Temp Pulse Resp BP Pulse Ox 98.1 F 52 L 20 102/53 99 09/23/18 17:25 09/23/18 17:25 09/23/18 17:25 09/23/18 17:25 09/23/18 17:25 Plan Activity: no restrictions Weight Bearing Status: Full Weight Bearing Diet: regular Follow up with: GAVIN MENDEZ [Other] - 3-5 Days
[2018-09-28 09:42] LABS: Hepatitis B Surface Antigen Nonreactive (Negative)
== END 2018-09-23 19:05 | disposition left against medical advice (07) | DRG 605 ==
LOC: ED 04:24 → 4A 10:18 → 3A 09-23 17:16
PROVIDERS: ADMIT Internal Medicine; ATTEND Internal Medicine
PROC: 0JJV0ZZ Inspection of Upper Extremity Subcutaneous Tissue and Fascia, Open Approach (ICD-10-PCS; 2018-09-21)
PROC: 0JCG0ZZ Extirpation of Matter from Right Lower Arm Subcutaneous Tissue and Fascia, Open Approach (ICD-10-PCS; principal; 2018-09-22)
PROC: BH47ZZZ Ultrasonography of Upper Extremity (ICD-10-PCS; 2018-09-22)
PROC: BW1J1ZZ Fluoroscopy of Upper Extremity using Low Osmolar Contrast (ICD-10-PCS; 2018-09-22)
DX: S40.851A Superficial foreign body of right upper arm, initial encounter (principal); F19.939 Other psychoactive substance use, unspecified with withdrawal, unspecified; R07.9 Chest pain, unspecified; F17.210 Nicotine dependence, cigarettes, uncomplicated; F12.90 Cannabis use, unspecified, uncomplicated; B19.20 Unspecified viral hepatitis C without hepatic coma; F14.90 Cocaine use, unspecified, uncomplicated; K00.7 Teething syndrome; Z72.89 Other problems related to lifestyle; Y93.89 Activity, other specified; Y92.89 Other specified places as the place of occurrence of the external cause; Y99.8 Other external cause status
CPT/HCPCS: 10121; 36415; 76937; 80048; 80053; 80074; 80307; 81001; 82140; 82550; 82553; 84484; 85025; 87040; 87116; 87186; 90715; 93005; 93010; 93306; 99406; G0378; J0690; J1644; J1650; J2250; J2543; J3010; J3370; J7040; Q9967